=== PATIENT | male | born 1960 ===

== ENCOUNTER → 2017-12-15 | Outpatient (CLI) | payer BC ==
[2017-12-15 18:29] LABS: Free Thyroxine 1.35 ng/dL (0.70-1.60)
[2017-12-15 18:35] LABS: Thyroid Stimulating Hormone 0.68 uIU/mL (0.360-4.800)
== END ==
LOC: LAB SHORT 17:54 → LAB 17:54
PROVIDERS: Nurse Practitioner Adult Health
DX: E03.9 Hypothyroidism, unspecified (principal)
CPT/HCPCS: 84439; 84443